=== PATIENT | male | born 1945 | race Caucasian/White ===

== ENCOUNTER → 2017-01-27 | Outpatient (CLI) | payer MEDICARE, OTHER ==
[~2017-01-27] MED LIST: AMLODIPINE BESY10 MG PO; ASPIRIN81 M2 PO; B COMPLEX1 CA1 PO; B COMPLEX1 TAB PO; BYSTOLIC10 MG PO; BYSTOLIC20 MG PO; CIPRO250 M1 PO; HYDROCODON-ACE1 EAC7 PO; MAGNESIUM GLUC200 MG PO; MAGNESIUM250 M1 PO; MAGNESIUM400 MG PO; NORVASC10 MG PO; PEPCID COMPLET1 EAC1 PO; PERCOCET 51 UDTAB 5/ PO; POTASSIUM GLU2.5 ME1 PO; POTASSIUM PO; SUPER B COMPLEX1 CAP PO; SUPRAX400 MG PO; VICODIN 5/1 TAB 5/50 PO; ZANTAC150 MG PO
== END | disposition home or self-care (01) ==
LOC: CRAD 09:18
DX: K22.2 Esophageal obstruction (principal)
CPT/HCPCS: 74230; 92611; G8996-GN; G8997-GN; G8998-GN